=== PATIENT | female | born 1990 | race Caucasian/White ===

== ENCOUNTER 2016-10-08 23:15 | Outpatient (CLI) | payer OTHER | END 2016-10-09 01:59 | disposition home or self-care (01) | LOC: GENOP 23:15 | DX: O42.92 Full-term premature rupture of membranes, unspecified as to length of time between rupture and onset of labor (principal); Z3A.38 38 weeks gestation of pregnancy | CPT/HCPCS: 83518; G0463 ==

== ENCOUNTER 2016-10-17 04:53 | Inpatient (IN) | payer OTHER ==
[2016-10-17 14:55] LABS: HEMOGLOBIN 12.1 gm/dl (12.3-15.3); RED BLOOD COUNT 4.17 M/UL (4.00-5.10); WHITE BLOOD COUNT 13.1 K/UL (4.5-11.0)
[2016-10-18 02:54] LABS: HEMOGLOBIN 10.1 gm/dl (12.3-15.3)
[2016-10-18] MEDS ORDERED: COLACE 100MG C100 MG PO (15:46)
== END 2016-10-18 19:45 | disposition home or self-care (01) | DRG 775 ==
LOC: GENOP 04:53 → OB 14:41 → GENOP 16:56 → OB 16:56
PROVIDERS: Obstetrics & Gynecology; ADMIT Obstetrics & Gynecology
PROC: 10E0XZZ Delivery of Products of Conception, External Approach (ICD-10-PCS; principal; 2016-10-17)
PROC: 10907ZC Drainage of Amniotic Fluid, Therapeutic from Products of Conception, Via Natural or Artificial Opening (ICD-10-PCS; 2016-10-17)
PROC: 0HQ9XZZ Repair Perineum Skin, External Approach (ICD-10-PCS; 2016-10-17)
PROC: 3E0234Z Introduction of Serum, Toxoid and Vaccine into Muscle, Percutaneous Approach (ICD-10-PCS; 2016-10-17)
DX: O99.824 Streptococcus B carrier state complicating childbirth (principal); Z3A.39 39 weeks gestation of pregnancy; Z37.0 Single live birth; Z82.49 Family history of ischemic heart disease and other diseases of the circulatory system; Z83.3 Family history of diabetes mellitus; O70.0 First degree perineal laceration during delivery; Z23 Encounter for immunization
CPT/HCPCS: 36415; 51702; 82800; 85014; 85018; 85025; 90715; J2590; J2795; J3010; J7120; Q2039

== ENCOUNTER 2022-04-06 19:10 | Emergency (ER) | payer OTHER ==
[~2022-04-06 19:10] MED LIST: COLACE 100MG C100 MG PO; IBUPROFEN800 MG PO; MICROZIDE12.5 MG PO; OMNICEF 300 MG300 MG PO
[2022-04-06 20:14] LABS: HEMOGLOBIN 14.2 gm/dl (12.3-15.3); RED BLOOD COUNT 4.75 M/UL (4.00-5.10); WHITE BLOOD COUNT 10.3 K/UL (4.5-11.0)
[2022-04-06 20:36] LABS: BUN/CREATININE RATIO 17 (0-10)
[2022-04-07] MEDS ORDERED: BENTYL 20MG TAB20 MG PO (00:40)
== END 2022-04-07 00:45 | disposition home or self-care (01) ==
LOC: ER1 19:10
PROVIDERS: Physician Assistant
DX: N93.9 Abnormal uterine and vaginal bleeding, unspecified (principal); R10.9 Unspecified abdominal pain; R40.2410 Glasgow coma scale score 13-15, unspecified time; Z90.49 Acquired absence of other specified parts of digestive tract
CPT/HCPCS: 80053; 81001; 83690; 84702; 84703; 85025; 86850; 86900; 86901; 87086; 99284